=== PATIENT | female | born 1955 | race Caucasian/White ===

== ENCOUNTER 2023-06-10 18:25 | Emergency (ER) | payer OTHER ==
[~2023-06-10] VITALS: Ht 157.5 cm; Wt 45.4 kg
[2023-06-10 18:40] VITALS: BP_SYST 147; PULSE 119; RESP 18; TEMP 98.3; O2SAT 98
--- NOTE | 2023-06-10 18:40 | NUR ---
Pt brought by self,ambulatory, A&Ox4, pt presents to ER with lower abdominal pain and black stool, afebrile, denies N/V, skin pink and warm, cap refill <3.
--- NOTE | 2023-06-10 19:24 | NUR ---
ER Dr. CARDONA at CHAIR side examining patient.
[2023-06-10 20:08] LABS: CALCIUM 10.8 mg/dL (8.4-11.0); CREATININE 1.64 mg/dL (0.55-1.30)
[2023-06-10 20:12] LABS: ALBUMIN 3.9 g/dL (3.4-4.8); TOTAL BILIRUBIN 0.4 mg/dL (0.0-1.0)
[2023-06-10] MEDS ORDERED: IPRATROPIUM/ALBUTEROL SULFATE 3 ML AMPUL.NEB (DUONEB) ONE (20:12)
[2023-06-10 20:29] LABS: BASOPHILS % (AUTO) 0.3 % (0.0-2.0); EOSINOPHILS # (AUTO) 0.2 K/uL (0.0-0.4); EOSINOPHILS % (AUTO) 2.5 % (0.0-4.0); HEMATOCRIT 43.3 % (36-48); HEMOGLOBIN 14.5 g/dL (12.0-16.0); LYMPHOCYTES # (AUTO) 1.2 K/uL (1.0-5.5); LYMPHOCYTES % (AUTO) 15.5 % (20.5-51.5); MEAN CORPUSCULAR HEMOGLOBIN 30 pg (27-31); MEAN CORPUSCULAR HGB CONC 34 % (32-36); MEAN CORPUSCULAR VOLUME 88 fL (79.0-98.0); MONOCYTES # (AUTO) 0.5 K/uL (0.0-1.0); MONOCYTES % (AUTO) 5.9 % (1.7-9.3); NEUTROPHILS # (AUTO) 5.9 K/uL (1.8-7.7); NEUTROPHILS % (AUTO) 75.8 % (40.0-70.0); PLATELET COUNT (AUTO) 371 K/uL (130-430); RED BLOOD CELL COUNT(AUTO) 4.93 MIL/uL (4.2-6.2); RED CELL DISTRIBUTION WIDTH 13.3 % (9.0-15.0); WHITE BLOOD COUNT (AUTO) 7.8 K/uL (4.8-10.8)
--- NOTE | 2023-06-10 22:15 | NUR ---
PT BIB SELF FROM HOME, AMBULATED TO CHAIR 1. PT A&Ox4, ABLE TO MAKE NEEDS KNOWN. PT C/O ABD PAIN SINCE LAST NIGHT. PT STATES SHE HAS HAD BLACK TARRY STOOLS SINCE LAST NIGHT. PT RATES PAIN 07/09. PT DENIES N/V, SOB/CP. PT DENIES FEVER AND CHILLS. PT DENIES TAKING PAIN MEDICATION. SAFETY PRECAUTIONS IN PLACE.
--- NOTE | 2023-06-10 22:17 | NUR ---
Patient to ER bed [facility] 3 to gown for evaluation. Side rails up. Report given to GRAY LUQUE.
[2023-06-10 22:27] LABS: BILIRUBIN,URINE 1+ (NEGATIVE); BLOOD, URINE NEGATIVE (NEGATIVE); CLARITY/URINE CLEAR (CLEAR); COLOR,URINE YELLOW (YELLOW); GLUCOSE,URINE NEGATIVE (NEGATIVE); KETONES,URINE TRACE (NEGATIVE); LEUKOCYTE ESTERASE ,URINE NEGATIVE (NEGATIVE); NITRITE, URINE NEGATIVE (NEGATIVE); PH,URINE 5.5 (5.0-8.0); PROTEIN URINE 2+ (NEGATIVE)
[2023-06-10 22:40] LABS: BACTERIA,URINE FEW /HPF (None Seen); WBC,URINE 0-3 /HPF (0-3)
[2023-06-11] MEDS ORDERED: POLY119P2 PO (00:27)
[2023-06-11 00:40] VITALS: BP_SYST 114; PULSE 108; RESP 18; TEMP 97.8; O2SAT 96
--- NOTE | 2023-06-11 00:40 | NUR ---
Patient given written and verbal discharge instructions and verbalizes understanding. ER DR CARDONA discussed with patient the results and treatment provided. Patient in stable condition. ID arm band removed. Rx of MIRALAX given. Patient educated on pain management and to follow up with PMD. Pain Scale 0/10. Opportunity for questions provided and answered. Medication side effect fact sheet provided.
== END 2023-06-11 00:40 | disposition home or self-care (01) ==
LOC: SED 18:25
DX: K59.00 Constipation, unspecified (principal); R10.30 Lower abdominal pain, unspecified; Z85.43 Personal history of malignant neoplasm of ovary; Z79.899 Other long term (current) drug therapy
CPT/HCPCS: 36415; 76376; 80053; 81000; 82272; 83690; 85025; 86886; 86900; 86901; 99284